=== PATIENT | male | born 1955 | race Asian ===

== ENCOUNTER 2018-09-29 17:45 | Emergency (ER) | payer OTHER ==
[~2018-09-29] VITALS: Ht 172.7 cm; Wt 88.0 kg
[2018-09-29 17:57] VITALS: Ht 172.7 cm; Wt 88.0 kg
[2018-09-30 00:50] VITALS: BP 134/82
== END 2018-09-30 00:57 | disposition home or self-care (01) ==
LOC: ED 17:45
DX: S63.266A Dislocation of metacarpophalangeal joint of right little finger, initial encounter (principal); S06.0X0A Concussion without loss of consciousness, initial encounter; S05.11XA Contusion of eyeball and orbital tissues, right eye, initial encounter; W18.09XA Striking against other object with subsequent fall, initial encounter; Y93.89 Activity, other specified; Y92.89 Other specified places as the place of occurrence of the external cause; Y99.8 Other external cause status
CPT/HCPCS: A4570; J1885; J2001; Q0162